=== PATIENT | male | born 1955 | race Caucasian/White ===

== ENCOUNTER 2018-12-13 13:47 | Inpatient (IN) | payer OTHER ==
[~2018-12-13] VITALS: Ht 177.8 cm; Wt 86.2 kg
== END 2019-01-18 10:18 | disposition home or self-care (01) | DRG 330 ==
LOC: SURH 12-14 05:15 → O/R 12-14 05:15 → SURH 12-14 10:39 → O/R 01-10 05:30 → SURH 01-10 14:00 → SURG 01-10 14:06 → SURH 01-10 20:45 → SURG 01-18 10:18
PROVIDERS: ADMIT Colon & Rectal Surgery
PROC: 07TB4ZZ Resection of Mesenteric Lymphatic, Percutaneous Endoscopic Approach (ICD-10-PCS; 2019-01-10)
PROC: 0DJD8ZZ Inspection of Lower Intestinal Tract, Via Natural or Artificial Opening Endoscopic (ICD-10-PCS; 2019-01-10)
PROC: 0DTN4ZZ Resection of Sigmoid Colon, Percutaneous Endoscopic Approach (ICD-10-PCS; principal; 2019-01-10 14:00)
PROC: 4A033R1 Measurement of Arterial Saturation, Peripheral, Percutaneous Approach (ICD-10-PCS; 2019-01-14)
DX: C20 Malignant neoplasm of rectum (principal); J95.89 Other postprocedural complications and disorders of respiratory system, not elsewhere classified; J98.11 Atelectasis; R59.0 Localized enlarged lymph nodes

== ENCOUNTER → 2018-12-13 | Day surgery (SDC) | payer OTHER ==
[~2018-12-13] MED LIST: ASA81 MG PO; LISINOPRIL5 MG PO; PLAVIX75 MG PO
== END | disposition home or self-care (01) ==
LOC: CIR.AMB 10:45 → AMB-ENDOS 14:20
DX: C19 Malignant neoplasm of rectosigmoid junction (principal); K64.1 Second degree hemorrhoids

== ENCOUNTER 2019-03-10 11:57 | Outpatient (CLI) | payer OTHER ==
[2019-03-10] MEDS ORDERED: TENORMIN25 MG PO (14:52)
== END 2019-03-10 12:17 | disposition home or self-care (01) ==
LOC: LAB 11:57
DX: C19 Malignant neoplasm of rectosigmoid junction (principal); C20 Malignant neoplasm of rectum; Z85.038 Personal history of other malignant neoplasm of large intestine; K92.2 Gastrointestinal hemorrhage, unspecified; I10 Essential (primary) hypertension

== ENCOUNTER 2019-03-15 05:10 | Day surgery (SDC) | payer OTHER ==
[~2019-03-15 05:10] MED LIST changes: +TENORMIN25 MG PO
== END 2019-03-15 15:00 | disposition home or self-care (01) ==
LOC: CIR.AMB 05:10
DX: C19 Malignant neoplasm of rectosigmoid junction (principal)
CPT/HCPCS: 36561; C1751

== ENCOUNTER 2020-02-02 07:14 | Day surgery (SDC) | payer OTHER | END 2020-02-02 12:55 | disposition home or self-care (01) | LOC: AMB-ENDOS 07:14 | PROVIDERS: ATTEND Colon & Rectal Surgery | DX: K62.89 Other specified diseases of anus and rectum (principal); K64.1 Second degree hemorrhoids; K62.4 Stenosis of anus and rectum; Z20.828 Contact with and (suspected) exposure to other viral communicable diseases ==

== ENCOUNTER 2022-02-03 06:28 | Day surgery (SDC) | payer OTHER | END 2022-02-03 12:00 | disposition home or self-care (01) | LOC: AMB-ENDOS 06:28 | PROVIDERS: ATTEND Colon & Rectal Surgery | DX: K63.89 Other specified diseases of intestine (principal); C19 Malignant neoplasm of rectosigmoid junction; K56.699 Other intestinal obstruction unspecified as to partial versus complete obstruction; K64.1 Second degree hemorrhoids; Z85.038 Personal history of other malignant neoplasm of large intestine; I10 Essential (primary) hypertension ==

== ENCOUNTER 2022-06-10 06:28 | Day surgery (SDC) | payer OTHER | END 2022-06-10 09:30 | disposition home or self-care (01) | LOC: AMB-ENDOS 06:28 → CIR.AMB 15:30 | PROVIDERS: ATTEND Colon & Rectal Surgery | DX: C19 Malignant neoplasm of rectosigmoid junction (principal); K63.89 Other specified diseases of intestine; K56.690 Other partial intestinal obstruction; K92.2 Gastrointestinal hemorrhage, unspecified ==

== ENCOUNTER 2023-01-05 06:00 | Day surgery (SDC) | payer OTHER | END 2023-01-05 11:25 | disposition home or self-care (01) | LOC: AMB-ENDOS 06:00 | PROVIDERS: ATTEND Colon & Rectal Surgery | DX: C19 Malignant neoplasm of rectosigmoid junction (principal); K92.2 Gastrointestinal hemorrhage, unspecified; K62.4 Stenosis of anus and rectum; Z20.822 Contact with and (suspected) exposure to COVID-19 ==

== ENCOUNTER 2023-12-07 05:55 | Day surgery (SDC) | payer OTHER ==
[2023-11-19 16:05] LABS: HEMATOCRIT 38.3 % (39.0-48.0); HEMOGLOBIN 12.5 g/dL (13-16.00); MEAN CELL VOLUME 89.7 fL (80.0-100.00); MEAN CORPUSCULAR HEMOGLOBIN 29.3 pg (27.00-32.0); MEAN CORPUSCULAR HGB CONC 32.7 g/dl (32.0-36.0); PLATELET COUNT 125 K/uL (150-450); RED BLOOD COUNT 4.27 M/uL (4.00-6.00)
[2023-11-19 16:06] LABS: RED CELL DISTRIBUTION WIDTH 19.1 % (11.5-14.5)
[2023-12-07] MEDS ORDERED: DIPHENHYDRAMINE HCL 50 MG/ML VIAL 1ML IV ONE (12:00)
[2023-12-07] MEDS ORDERED: fentaNYL CITRATE 50 MCG/ML AMPUL IV PUSH ONE (12:00)
[2023-12-07] MEDS ORDERED: MIDAZOLAM HCL 2 MG/2 ML VIAL IV ONE (12:00)
== END 2023-12-07 14:00 | disposition home or self-care (01) ==
LOC: AMB-ENDOS 05:55
PROVIDERS: ATTEND Colon & Rectal Surgery
DX: K92.2 Gastrointestinal hemorrhage, unspecified (principal); Z85.038 Personal history of other malignant neoplasm of large intestine; I10 Essential (primary) hypertension; J98.11 Atelectasis; K64.8 Other hemorrhoids